=== PATIENT | male | born 1995 | race Caucasian/White ===

== ENCOUNTER 2017-01-30 | Emergency (ER) | payer OTHER | END 2017-01-31 00:15 | disposition left against medical advice (07) | DX: Z53.21 Procedure and treatment not carried out due to patient leaving prior to being seen by health care provider (principal) ==

== ENCOUNTER 2017-01-31 11:11 | Emergency (ER) | payer OTHER | END 2017-01-31 12:05 | disposition home or self-care (01) | LOC: ER1 11:11 | DX: S69.91XA Unspecified injury of right wrist, hand and finger(s), initial encounter (principal); Z23 Encounter for immunization; Z87.891 Personal history of nicotine dependence; W26.8XXA Contact with other sharp object(s), not elsewhere classified, initial encounter; Y92.009 Unspecified place in unspecified non-institutional (private) residence as the place of occurrence of the external cause | CPT/HCPCS: 80074; 87390; 90471; 90715; 99283 ==

== ENCOUNTER 2017-02-17 12:39 | Emergency (ER) | payer OTHER | END 2017-02-17 14:08 | disposition home or self-care (01) | LOC: ER1 12:39 | DX: J02.9 Acute pharyngitis, unspecified (principal) | CPT/HCPCS: 87081; 87880; 99283 ==